=== PATIENT | female | born 1945 | race Caucasian/White ===

== ENCOUNTER 2017-09-07 23:37 | Emergency (ER) | payer OTHER ==
[2017-09-07 23:47] VITALS: O2SAT 96
--- NOTE | 2017-09-08 00:22 | EDPHY ---
H & P Time Seen by Provider: 09/07/17 23:48 HPI/ROS: CHIEF COMPLAINT: Right ankle injury HISTORY OF PRESENT ILLNESS: 71-year-old female presents to the emergency department with isolated injury to her right ankle. Patient states just prior to arrival she was stepping up on the curb and then twisted her right ankle. She was able to bear a little bit of weight initially but now has more pain and swelling. She did apply ice and has been elevating her ankle. She denies hitting her head or losing consciousness. She thinks that she may also have had "tweaked "her knee. Denies any other injury or trauma. ROS: Denies numbness or tingling in her toes, pain in her right knee or hip. Denies symptoms in her left lower extremity. Past Medical/Surgical History: Right foot fracture 2 years ago, appendectomy Social History: Single and lives in [place] Smoking Status: Former smoker Physical Exam: On examination patient has swelling noted especially to the lateral aspect of the right ankle overlying lateral malleolus. She has mild pain over the medial malleolus as well. No abrasion or puncture wound. Normal sensation to light touch with normal 2 point discrimination. Strong dorsalis pedis pulse on the dorsal aspect of her right foot. Limited dorsi and plantar flexion secondary to pain. Her calf is nontender. Achilles tendon is intact. Her right knee is nontender. She is able to flex her right knee. Constitutional: Initial Vital Signs Temperature (C) 36.4 C 09/07/17 23:43 Heart Rate 69 09/07/17 23:43 Respiratory Rate 18 09/07/17 23:43 Blood Pressure 141/66 H 09/07/17 23:43 O2 Sat (%) 96 09/07/17 23:43 O2 Delivery Mode Room Air Allergies/Adverse Reactions: No Known Allergies Allergy (Unverified 09/07/17 23:42) Home Medications: Medication Instructions Recorded Cephalexin [Keflex] 500 mg PO QID 5 Days cap 01/16/16 oxyCODONE IR [Oxycodone Ir (*)] 5 mg PO Q6 #10 tab 01/16/16 MDM/Departure - MDM Imaging Results: X-rays reveal avulsion fracture off lateral aspect of the talus. This was reviewed by myself the PAC system as well as with Dr. Tyler MacDade. Radiology interpretation to follow. Procedures: The patient has her own Spangler boot that she placed on her foot. Medications Given: Discontinued Medications Ibuprofen (Motrin) 600 mg PO EDNOW ONE Stop: 09/08/17 00:50 Last Admin: 09/08/17 00:58 Dose: 600 mg ED Course/Re-evaluation: 71-year-old female presents after mechanical fall injuring her right ankle. X- rays reveal avulsion fracture of the lateral aspect of the talus. The patient has her own Spangler boot. She has her own crutches. I encouraged her to be nonweightbearing and will follow up with orthopedic surgery this week. Patient verbalized understanding and agreed. - Depart Disposition: Home, Routine, Self-Care Clinical Impression: Avulsion fracture of ankle Qualifiers: Encounter type: initial encounter Fracture type: closed Laterality: right Qualified Code(s): S82.891A - Other fracture of right lower leg, initial encounter for closed fracture Condition: Good Instructions: Ankle Fracture (ED) Additional Instructions: Do not put any weight on your right ankle until you see the orthopedic surgeon. You may require additional imaging studies as discussed. Ibuprofen 600 mg every 8 hours as needed for pain. Ice and elevate to help relieve swelling. Stand Alone Forms: Airline Excuse Referrals: Zach Ware MD [Medical Doctor] - 2-3 days without fail (Orthopedic surgeon on -call)
[2017-09-08] MEDS ORDERED: IBUPROFEN 600 MG TAB PO ONE (00:49)
[2017-09-08 01:29] VITALS: BP 134/74; PULSE 66; RESP 16; TEMP 97.9
== END 2017-09-08 01:29 | disposition home or self-care (01) ==
DX: S82.891A Other fracture of right lower leg, initial encounter for closed fracture (principal); Z87.891 Personal history of nicotine dependence; X58.XXXA Exposure to other specified factors, initial encounter; Y99.8 Other external cause status; Y93.89 Activity, other specified